=== PATIENT | female | born 1970 | race Caucasian/White ===

== ENCOUNTER 2023-03-17 11:42 | Emergency (ER) | payer OTHER, SELFPAY | END 2023-03-17 12:30 | disposition home or self-care (01) | LOC: BURERS 11:42 | DX: J01.90 Acute sinusitis, unspecified (principal); B96.89 Other specified bacterial agents as the cause of diseases classified elsewhere; J02.9 Acute pharyngitis, unspecified | CPT/HCPCS: 99283 ==